=== PATIENT | male | born 1975 | race Caucasian/White ===

== ENCOUNTER 2024-01-20 14:34 | Day surgery (SDC) | payer BC ==
[2024-01-20] MEDS ORDERED: XYLOCAINE-MPF 1% 5ML SDV IJ ONE (14:35)
[2024-01-20] MEDS ORDERED: SYNVISC 16 MG/2 ML SYRINGE IU ONE (14:35)
--- NOTE | 2024-01-20 17:15 | XRAY ---
Indication: Right knee injection. Intraoperative fluoroscopy provided for 13 seconds. Single digital spot images submitted for interpretation demonstrates needle tip projecting over the right femur intercondylar notch. Small amount of contrast injected for needle tip placement. Correlate with intraoperative findings/report.
--- NOTE | 2024-01-20 17:15 | XRAY ---
Indication: Left knee injection. Intraoperative fluoroscopy provided for 15 seconds. Single digital spot images submitted for interpretation demonstrates needle tip projecting over the left femur intercondylar notch. Small amount of contrast injected for needle tip placement. Correlate with intraoperative findings/report.
--- NOTE | 2024-01-21 10:23 | XRAY ---
15 seconds of fluoroscopy was used in surgery for a left intra-articular knee injection.
--- NOTE | 2024-01-21 10:23 | XRAY ---
13 seconds of fluoroscopy was used in surgery for a right intra-articular knee injection.
== END 2024-01-20 16:45 | disposition home or self-care (01) ==
LOC: SDC-PAIN 14:34
PROVIDERS: ATTEND Psychiatry & Neurology Pain Medicine
DX: M17.0 Bilateral primary osteoarthritis of knee (principal); E11.9 Type 2 diabetes mellitus without complications
CPT/HCPCS: 20610; 73560; 77002; 82947; J7325; Q9966

== ENCOUNTER 2024-01-27 16:00 | Day surgery (SDC) | payer BC ==
[2024-01-27] MEDS ORDERED: SYNVISC 16 MG/2 ML SYRINGE IU ONE (16:01)
[2024-01-27] MEDS ORDERED: XYLOCAINE-MPF 1% 5ML SDV IJ ONE (16:01)
--- NOTE | 2024-01-27 19:30 | XRAY ---
Indication: Right knee injection. Intraoperative fluoroscopy provided for 10 seconds. Single digital spot images submitted for interpretation demonstrates needle tip projecting over right femur intercondylar notch. Small amount of contrast injected for needle tip placement. Correlate with intraoperative findings/report.
--- NOTE | 2024-01-27 19:32 | XRAY ---
Indication: Left knee injection. Intraoperative fluoroscopy provided for 6 seconds. Single digital spot images submitted for interpretation demonstrates needle tip projecting over left femur intercondylar notch. Small amount of contrast injected for needle tip placement. Correlate with intraoperative findings/report.
--- NOTE | 2024-01-28 10:34 | XRAY ---
10 seconds of fluoroscopy was used in surgery for a right intra-articular knee injection.
--- NOTE | 2024-01-28 10:34 | XRAY ---
6 seconds of fluoroscopy was used in surgery for a left intra-articular knee injection.
== END 2024-01-27 18:23 | disposition home or self-care (01) ==
LOC: SDC-PAIN 16:00
PROVIDERS: ATTEND Psychiatry & Neurology Pain Medicine
DX: M17.0 Bilateral primary osteoarthritis of knee (principal); E11.9 Type 2 diabetes mellitus without complications
CPT/HCPCS: 20610; 73560; 77002; 82947; J7325; Q9966

== ENCOUNTER 2024-02-03 15:48 | Day surgery (SDC) | payer BC ==
[2024-02-03] MEDS ORDERED: XYLOCAINE-MPF 1% 5ML SDV IJ ONE (15:49)
--- NOTE | 2024-02-03 20:08 | XRAY ---
Indication: Left knee injection. Intraoperative fluoroscopy provided for 6 seconds. Single digital spot images submitted for interpretation demonstrates anterior needle tip projecting over the left femur intercondylar notch. Small amount of contrast injected for needle tip placement. Correlate with intraoperative findings/report.
--- NOTE | 2024-02-03 20:08 | XRAY ---
Indication: Right knee injection. Intraoperative fluoroscopy provided for 9 seconds. Single digital spot images submitted for interpretation demonstrates anterior needle tip projecting over the right femur intercondylar notch. Small amount of contrast injected for needle tip placement. Correlate with intraoperative findings/report.
--- NOTE | 2024-02-04 09:18 | XRAY ---
6 seconds of fluoroscopy was used in surgery for a left intra-articular knee injection.
--- NOTE | 2024-02-04 09:19 | XRAY ---
9 seconds of fluoroscopy was used in surgery for a right intra-articular knee injection.
== END 2024-02-03 17:52 | disposition home or self-care (01) ==
LOC: SDC-PAIN 15:48
PROVIDERS: ATTEND Psychiatry & Neurology Pain Medicine
DX: M17.0 Bilateral primary osteoarthritis of knee (principal)
CPT/HCPCS: 20610; 73560; 77002; Q9966